=== PATIENT | female | born 2000 | race Caucasian/White ===

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

== ENCOUNTER 2022-05-05 13:22 | Emergency (ER) | payer BC ==
[~2022-05-05] VITALS: Ht 165 cm; Wt 61.0 kg
--- NOTE | 2022-05-05 13:53 | ED Cardiac General ---
History of Present Illness General Chief Complaint: Cardiac/General Problems Stated Complaint: DIFFICULTY BREATHING | PANIC ATTACK Nursing Triage Note: PT AMB TO [facility] 6 PT STATES HAVING PALPATIONS, INTERMITTENTLY PAST WEEK, PT IS VERY ANXIOUS. PT IS TEARFUL. STATES HAS ALOT OF ANIETY. PT STATES GOT OFF OF MEDS ABOUT 6MONTHS AGO. PT STATES HAS PANICK ATTACKS ALL THE TIME. PT STATES FEELS LIKE IS GOING TO PASS OUT Source: patient Exam Limitations: no limitations History of Present Illness Date Seen by Provider: May 05, 2022 Time Seen by Provider: 13:25 Initial Comments 21-year-old female with past medical history of anxiety disorder and panic attacks coming in due to feel like her heart is racing. This has been a problem for years, worsening over the past couple weeks. She has been to multiple ERs, has had a Holter monitor which was okay, normal echo, and has had follow-up with her primary care physician. She used to be on Zoloft but she took herself off because she states she was feeling okay. She states she had a work-up at another facility recently and was told that it is pleurisy. Specifically, she states she had blood work done and was told that it is not a blood clot. She has not taken any medicines as of yet today. The chest pain is mild to moderate, sharp, worse with breathing. Denies any prior history of DVT or PE, no hemoptysis, no lower extremity swelling or pain, no recent surgery, and she does take control. Allergies and Home Medications Allergies Coded Allergies: Sulfa (Sulfonamide Antibiotics) (Verified Allergy, Unknown, 05/05/22) Patient Home Medication List Home Medication List Reviewed: Yes Alprazolam (Alprazolam) 0.5 Mg Tablet, 0.5 MG PO Q12H PRN for ANXIETY Prescribed by: UMA CLAY on 05/05/22 2851 Review of Systems Review of Systems Constitutional: No fever EENTM: No Symptoms Reported Respiratory: See HPI Cardiovascular: See HPI Gastrointestinal: No Symptoms Reported Genitourinary: No Symptoms Reported Musculoskeletal: no symptoms reported Skin: no symptoms reported Psychiatric/Neurological: See HPI Endocrine: No Symptoms Reported Hematologic/Lymphatic: No Symptoms Reported Past Fgnlbvw-Klwwwl-Ylgokl Hx Patient Social History Tobacco Use?: No Use of E-Cig and/or Vaping dev: Yes E-Cig or Vaping type used: Nicotine Substance use?: No Alcohol Use?: Yes Alcohol Frequency: Once in a while Past Medical History Surgeries: No Physical Exam Vital Signs Vital Signs - First Documented 05/05/22 13:33 Temp 35.9 Pulse 110 Resp 15 B/P (MAP) 121/94 (103) Pulse Ox 98 Capillary Refill : Less Than 3 Seconds Height, Weight, BMI Height: '" Weight: lbs. oz. kg; 22.00 BMI Method: General Appearance: WD/WN, Anxious HEENT: PERRL/EOMI, Normal ENT Inspection, Pharynx Normal Neck: Full Range of Motion, Normal Inspection, Non Tender, Supple Respiratory: Chest Non Tender, Lungs Clear, Normal Breath Sounds, No Accessory Muscle Use, No Respiratory Distress Cardiovascular: No Edema, Normal Peripheral Pulses, Tachycardia Gastrointestinal: Normal Bowel Sounds, Non Tender, Soft; No Distended, No Guarding Extremity: Normal Capillary Refill, Normal Inspection, Normal Range of Motion, Non Tender, No Calf Tenderness, No Pedal Edema Neurologic/Psychiatric: Alert, No Motor/Sensory Deficits, Normal Mood/Affect Skin: Normal Color, Warm/Dry Lymphatic: No Adenopathy Progress/Results/Core Measures Results/Orders Lab Results Laboratory Tests Test 05/05/22 13:56 Range/Units White Blood Count 6.1 4.3-11.0 10^3/uL Red Blood Count 4.47 3.80-5.11 10^6/uL Hemoglobin 13.1 11.5-16.0 g/dL Hematocrit 39 35-52 % Mean Corpuscular Volume 87 80-99 fL Mean Corpuscular Hemoglobin 29 25-34 pg Mean Corpuscular Hemoglobin Concent 34 32-36 g/dL Red Cell Distribution Width 11.6 10.0-14.5 % Platelet Count 283 130-400 10^3/uL Mean Platelet Volume 9.9 9.0-12.2 fL Immature Granulocyte % (Auto) 0 % Neutrophils (%) (Auto) 58 42-75 % Lymphocytes (%) (Auto) 35 12-44 % Monocytes (%) (Auto) 5 0-12 % Eosinophils (%) (Auto) 1 0-10 % Basophils (%) (Auto) 1 0-10 % Neutrophils # (Auto) 3.5 1.8-7.8 10^3/uL Lymphocytes # (Auto) 2.1 1.0-4.0 10^3/uL Monocytes # (Auto) 0.3 0.0-1.0 10^3/uL Eosinophils # (Auto) 0.1 0.0-0.3 10^3/uL Basophils # (Auto) 0.1 0.0-0.1 10^3/uL Immature Granulocyte # (Auto) 0.0 0.0-0.1 10^3/uL Prothrombin Time 13.1 12.2-14.7 SEC INR Comment 0.9 0.8-1.4 Activated Partial Thromboplast Time 30 24-35 SEC D-Dimer <= 0.27 0.00-0.49 UG/ML Sodium Level 138 135-145 MMOL/L Potassium Level 3.5 L 3.6-5.0 MMOL/L Chloride Level 104 98-107 MMOL/L Carbon Dioxide Level 26 21-32 MMOL/L Anion Gap 8 5-14 MMOL/L Blood Urea Nitrogen 15 7-18 MG/DL Creatinine 0.78 0.60-1.30 MG/DL Estimat Glomerular Filtration Rate 112 BUN/Creatinine Ratio 19 Glucose Level 107 H 70-105 MG/DL Calcium Level 9.4 8.5-10.1 MG/DL Corrected Calcium 9.2 8.5-10.1 MG/DL Magnesium Level 1.9 1.6-2.4 MG/DL Total Bilirubin 0.4 0.1-1.0 MG/DL Aspartate Amino Transf (AST/SGOT) 20 5-34 U/L Alanine Aminotransferase (ALT/SGPT) 21 0-55 U/L Alkaline Phosphatase 47 40-136 U/L Troponin I < 0.028 <0.028 NG/ML B-Type Natriuretic Peptide < 10.0 <100.0 PG/ML Total Protein 7.3 6.4-8.2 GM/DL Albumin 4.2 3.2-4.5 GM/DL Lipase 48 8-78 U/L My Orders Orders - UMA CLAY MD Cbc With Automated Diff (05/05/22 13:46) Magnesium (05/05/22 13:46) Chest 1 View, Ap/Pa Only (05/05/22 13:46) Ekg Tracing (05/05/22 13:46) Comprehensive Metabolic Panel (05/05/22 13:46) Protime With Inr (05/05/22 13:46) Partial Thromboplastin Time (05/05/22 13:46) O2 (05/05/22 13:46) Monitor-Rhythm Ecg Trace Only (05/05/22 13:46) Ed Iv/Invasive Line Start (05/05/22 13:46) Lipase (05/05/22 13:46) Bnp Bates (05/05/22 13:46) Fibrin Degradation Products (05/05/22 13:46) Troponin I Bates (05/05/22 13:46) Ketorolac Injection (Toradol Injection) (05/05/22 14:00) Lorazepam Tablet (Ativan Tablet) (05/05/22 14:00) Urine Bedside (05/05/22 13:46) Medications Given in ED Current Medications Medications Dose Ordered Sig/Quoc Route Start Time Stop Time Status Last Admin Dose Admin Ketorolac Tromethamine 15 mg ONCE ONCE IVP 05/05/22 14:00 05/05/22 14:01 DC 05/05/22 13:58 15 MG Lorazepam 0.5 mg ONCE ONCE PO 05/05/22 14:00 05/05/22 14:01 DC 05/05/22 13:59 0.5 MG Vital Signs/I&O 05/05/22 13:33 Temp 35.9 Pulse 110 Resp 15 B/P (MAP) 121/94 (103) Pulse Ox 98 Blood Pressure Mean: 117 Progress Progress Note : Progress Note 21-year-old female with above history coming in due to palpitations and chest discomfort. ABCs were intact and vitals are stable on presentation. While the patient was crying and distraught on arrival her heart rate was understandably elevated. When she calmed down, her heart rate went down to the 60s appropriately. No clinical signs of DVT and only risk factor is control. She has had a negative work-up for a PE recently, but given this was not done in our hospital system, we will repeat the work-up. An IV was placed and basic labs were obtained including cardiac biomarkers and D-dimer. Troponin is negative, D-dimer undetectable, BNP undetectable, normal platelets, normal white blood cell count, normal creatinine. She was given some IV fluids as well as some Toradol for discomfort and oral Ativan for anxiety which she states is very bad. EKG on my interpretation with no acute ischemic changes. She is having PACs on the EKG and on the monitor. She is symptomatic with some of these. She has a holter monitor ordered and should be here soon. I recommended to follow up with this and cardiology referral. Chest x-ray with no acute findings as well. I will refer the patient back to her PCP for her known anxiety disorder that she has taken herself off of medicines. I believe she is otherwise stable for discharge with outpatient follow-up. She was sent home with strict return precautions Initial ECG Impression Date: May 05, 2022 Initial ECG Impression Time: 14:30 Initial ECG Rate: 65 Initial ECG Rhythm: Normal Sinus Comment Narrow QRS, normal axis, no significant ST changes or T wave abnormalities, QTc 385, no delta wave, frequent PACs Diagnostic Imaging Diagonstic Imaging: Xray (chest) Comments NAME: MADELINE MIRANDA [facility] REC#: [id number] PT STATUS: REG ER : 2002 PHYSICIAN: UMA CLAY MD ADMIT DATE: 05/05/22/ER Draft Date of Exam:05/05/22 CHEST 1 VIEW, AP/PA ONLY Indication: Palpitation Single AP view of the chest is obtained. COMPARISON: No previous study is available for comparison at this time. FINDINGS: Heart size and pulmonary vasculature are within normal limits, and the lungs are clear, bilaterally. IMPRESSION: Unremarkable chest. Dictated on workstation # [id number] Dict: 05/05/22 1423 Trans: 05/05/22 1424 [facility] [id number] Interpreted by: ADALID ROSENTHAL MD Electronically signed by: Departure Impression Primary Impression: Palpitations Additional Impression: PAC (premature atrial contraction) Disposition: 01 HOME, SELF-CARE Condition: Stable Departure-Patient Inst. Decision time for Depature: 15:15 Referrals: SU CORTEZ (PCP/Family) Primary Care Physician Patient Instructions: Palpitations Add. Discharge Instructions: You are having relatively frequent premature atrial contractions (PACs) that you feel some of them. This is not a very dangerous thing to be happening, but can make you uncomfortable. I recommend going forward with the Holter monitor that you had ordered and following up with a teaching pastor regarding this. It does not appear like you are having a heart attack, no signs of a blood clot, no signs of pneumonia, and no other signs of any life-threatening causes of your symptoms. I do think it is a good idea to go back on your anxiety medications as these are often symptoms of an anxiety disorder as well. We will send some very short-term anxiety medications to your pharmacy to help out for the next couple of days so that you can hopefully get follow-up with your regular doctor. Scripts Alprazolam (Alprazolam) 0.5 Mg Tablet 0.5 MG PO Q12H PRN for ANXIETY for 3 Days, #6 TAB Prov: UMA CLAY MD 05/05/22 Work/School Note: School/Childcare Release Date Seen in the Emergency Department: May 05, 2022 Time Dismissed from Emergency Department: 15:15 Return to School: May 06, 2022 Restrictions: No Restrictions UMA CLAY MD May 05, 2022 13:53
[2022-05-05] MEDS ORDERED: LORazepam 0.5 MG (ATIVAN) TABLET PO ONE (14:00)
[2022-05-05] MEDS ORDERED: KETOROLAC 30 MG/ML VIAL IVP ONE (14:00)
[2022-05-05 14:08] LABS: BASOPHILS # (AUTO) 0.1 10^3/uL (0.0-0.1); BASOPHILS % (AUTO) 1 % (0-10); EOSINOPHILS # (AUTO) 0.1 10^3/uL (0.0-0.3); EOSINOPHILS % (AUTO) 1 % (0-10); HEMATOCRIT 39 % (35-52); HEMOGLOBIN 13.1 g/dL (11.5-16.0); LYMPHOCYTES # (AUTO) 2.1 10^3/uL (1.0-4.0); LYMPHOCYTES % (AUTO) 35 % (12-44); MEAN CORPUSCULAR HEMOGLOBIN 29 pg (25-34); MEAN CORPUSCULAR HGB CONC 34 g/dL (32-36); MEAN CORPUSCULAR VOLUME 87 fL (80-99); MEAN PLATELET VOLUME 9.9 fL (9.0-12.2); MONOCYTES # (AUTO) 0.3 10^3/uL (0.0-1.0); MONOCYTES % (AUTO) 5 % (0-12); NEUTROPHILS # (AUTO) 3.5 10^3/uL (1.8-7.8); NEUTROPHILS % (AUTO) 58 % (42-75); PLATELET COUNT 283 10^3/uL (130-400); WHITE BLOOD COUNT 6.1 10^3/uL (4.3-11.0)
[2022-05-05 14:16] LABS: ALBUMIN 4.2 GM/DL (3.2-4.5); POTASSIUM 3.5 MMOL/L (3.6-5.0)
[2022-05-05 14:17] LABS: CALCIUM 9.4 MG/DL (8.5-10.1)
[2022-05-05 14:18] LABS: TOTAL PROTEIN 7.3 GM/DL (6.4-8.2)
[2022-05-05 14:20] LABS: BILIRUBIN,TOTAL 0.4 MG/DL (0.1-1.0)
[2022-05-05 14:22] LABS: CREATININE SERUM 0.78 MG/DL (0.60-1.30)
[2022-05-05 14:25] LABS: MAGNESIUM 1.9 MG/DL (1.6-2.4)
--- NOTE | 2022-05-05 14:25 | Diagnostic Imaging Report ---
Indication: Palpitation Single AP view of the chest is obtained. COMPARISON: No previous study is available for comparison at this time. FINDINGS: Heart size and pulmonary vasculature are within normal limits, and the lungs are clear, bilaterally. IMPRESSION: Unremarkable chest. Dictated by: Dictated on workstation # [id number]
[2022-05-05 14:26] LABS: INR 0.9 (0.8-1.4); PROTHROMBIN TIME PATIENT 13.1 SEC (12.2-14.7)
[2022-05-05] MEDS ORDERED: ALPR0.5T7 PO (15:14)
[2022-05-05 15:30] VITALS: BP 113/77
== END 2022-05-05 14:39 | disposition home or self-care (01) ==
LOC: EDUNIT# 13:22 → ER 13:25
DX: I49.1 Atrial premature depolarization (principal); F41.9 Anxiety disorder, unspecified; F17.290 Nicotine dependence, other tobacco product, uncomplicated; Z79.899 Other long term (current) drug therapy
CPT/HCPCS: 36415; 71045; 80053; 83690; 83735; 83880; 84484; 85025; 85379; 85610; 85730; 93005; 93041